=== PATIENT | male | born 1940 | race Caucasian/White ===

== ENCOUNTER → 2017-11-18 14:16 | Outpatient (CLI) | payer MEDICARE, OTHER, SELFPAY ==
--- NOTE | 2017-11-18 14:47 | XR_ITS ---
XR foot wt bearing RT 3V, XR foot wt bearing LT 3V Ordering Physician: Ibeth Mitchell DPM Patient Age: 76 years: Male HISTORY: ITS.REASON: hammertoes foot pain with weightbearing TECHNIQUE: Right foot 3 view weightbearing Left foot 3 view weightbearing COMPARISON : ========= RIGHT FOOT 3 VIEW weightbearing FLEXION deformity/hammertoe deformity at. Toes-most evident second through fifth toe. There are some early degenerative changes at the first MTP joint most evident at its lateral aspect, with some associated minimal subchondral cystic changes about the joint. Question some scant degenerative changes at the first and second tarsometatarsal joints. Extensor ossicle medial navicular os navicularis noted. Bones well mineralized. generous plantar calcaneal spur measuring over 10 mm length. IMPRESSION 1. Flexion, hammertoe deformity at toes 2 through 5 2. Minor arthritic at first MTP joint; and & possibly at first and second tarsal-metatarsal joint LEFT FOOT 3 VIEW weightbearing Perhaps scant early degenerative changes at at first MTP.. Unimpressive Only questionable scant early arthritic changes first and second tarsometatarsal joints.. Moderate plantar calcaneal spur measuring up to 8 mm osseous structures intact Less pronounced flexion, hammertoe deformity at the left toes, 2 through 5. Most evident flexion at second toe perhaps scant hallux valgus developing at distal phalanx great toe IMPRESSION: 1. Flexion, hammertoe deformity at toes less pronounced on the left than right. & Most evident second toe 2. Only question early arthritic changes at first TP joint and first tarsometatarsal region
== END ==
PROVIDERS: PCP Internal Medicine Adolescent Medicine; Visit Provider Podiatrist
DX: M20.40 Other hammer toe(s) (acquired), unspecified foot (principal)
CPT/HCPCS: 73630

== ENCOUNTER → 2018-03-22 07:49 | Outpatient (CLI) | payer MEDICARE, OTHER, SELFPAY ==
[2018-03-22 08:09] LABS: Basophils % 0.8 % (0.1-2.0); Eosinophils # 0.3 K/mm3 (0.0-0.4); Eosinophils % 4.5 % (0.1-12.0); Hemoglobin 14.4 g/dL (14.1-18.0); Lymphocytes # 1.7 K/mm3 (0.7-4.5); Lymphocytes % 31.5 % (10-50); Mean Corpuscular HGB Conc 33.4 g/dL (31.8-35.4); Mean Corpuscular Hemoglobin 30.6 pg (27.0-31.2); Mean Corpuscular Volume 91.7 fl (80-94); Mean Platelet Volume 8.1 fl (7.4-10.4); Monocytes # 0.3 K/mm3 (0.1-1.0); Monocytes % 5.7 % (1.7-9.3); Neutrophils # 3.2 K/mm3 (1.8-7.8); Neutrophils % 57.6 % (37.0-80.0); Platelet Count 195 K/mm3 (142-424); Red Blood Count 4.69 M/mm3 (4.60-6.20); Red Cell Distribution Width 12.9 % (11.5-17.5); White Blood Count 5.6 K/mm3 (4.8-10.8)
[2018-03-22 08:56] LABS: Anion Gap 12.6 mEq/L (5-15); Blood Urea Nitrogen 24 mg/dL (7-18); Calcium 8.9 mg/dL (8.5-10.1); Carbon Dioxide 31 mmol/L (21.0-32.0); Chloride 101 mmol/L (98-107); Creatinine,Serum 1.25 mg/dL (0.70-1.30); Estimated Glomerular Filt Rate 56 ml/min (>60); GFR (African American) 68 ML/MIN (>60); Glucose 127 mg/dL (74-106); Potassium 4.6 mmoL/L (3.5-5.1); Sodium 140 mmol/L (136-145)
== END ==
PROVIDERS: Visit Provider Otolaryngology
DX: Z01.818 Encounter for other preprocedural examination (principal); L98.9 Disorder of the skin and subcutaneous tissue, unspecified
CPT/HCPCS: 36415; 80048; 85025; 93005

== ENCOUNTER → 2018-09-17 11:07 | Outpatient (CLI) | payer MEDICARE, BC, SELFPAY ==
[2018-09-17 11:48] LABS: Basophils % 0.8 % (0.1-2.0); Eosinophils # 0.2 K/mm3 (0.0-0.4); Eosinophils % 3.1 % (0.1-12.0); Hematocrit 42.7 % (42.0-52.0); Hemoglobin 14.9 g/dL (14.1-18.0); Lymphocytes # 1.5 K/mm3 (0.7-4.5); Lymphocytes % 28.2 % (10-50); Mean Corpuscular HGB Conc 34.9 g/dL (31.8-35.4); Mean Corpuscular Hemoglobin 30.9 pg (27.0-31.2); Mean Corpuscular Volume 88.4 fl (80-94); Mean Platelet Volume 7.9 fl (7.4-10.4); Monocytes # 0.4 K/mm3 (0.1-1.0); Monocytes % 6.6 % (1.7-9.3); Neutrophils # 3.2 K/mm3 (1.8-7.8); Neutrophils % 61.3 % (37.0-80.0); Platelet Count 172 K/mm3 (142-424); Red Blood Count 4.84 M/mm3 (4.60-6.20); Red Cell Distribution Width 12.9 % (11.5-17.5); White Blood Count 5.3 K/mm3 (4.8-10.8)
[2018-09-17 12:32] LABS: Anion Gap 12.5 mEq/L (5-15); Blood Urea Nitrogen 20 mg/dL (7-18); Calcium 9.2 mg/dL (8.5-10.1); Carbon Dioxide 31 mmol/L (21.0-32.0); Chloride 103 mmol/L (98-107); Creatinine,Serum 1.22 mg/dL (0.70-1.30); Estimated Glomerular Filt Rate 58 ml/min (>60); GFR (African American) 70 ML/MIN (>60); Glucose 82 mg/dL (74-106); Potassium 4.5 mmoL/L (3.5-5.1); Sodium 142 mmol/L (136-145)
== END ==
PROVIDERS: Visit Provider Otolaryngology
DX: Z01.818 Encounter for other preprocedural examination (principal); L98.9 Disorder of the skin and subcutaneous tissue, unspecified
CPT/HCPCS: 36415; 80048; 85025; 93005

== ENCOUNTER → 2018-10-21 13:19 | Outpatient (CLI) | payer MEDICARE, BC, SELFPAY ==
[2018-10-21 15:07] LABS: Alanine Aminotransferase 35 U/L (12-78); Albumin Level 3.9 gm/dL (3.4-5.0); Albumin/Globulin Ratio 1.4 (1.1-1.8); Alkaline Phosphatase 80 U/L (46-116); Aspartate Amino Transferase 21 U/L (15-37); Bilirubin,Total 1.1 mg/dL (0.2-1.0); Blood Urea Nitrogen 29 mg/dL (7-18); Carbon Dioxide 29 mmol/L (21.0-32.0); Chloride 103 mmol/L (98-107); Creatinine,Serum 1.43 mg/dL (0.70-1.30); Estimated Glomerular Filt Rate 48 ml/min (>60); GFR (African American) 58 ML/MIN (>60); Globulin 2.8 gm/dl (1.3-3.2); Glucose 108 mg/dL (74-106); Sodium 142 mmol/L (136-145); Total Protein,Serum 6.7 gm/dL (6.4-8.2)
== END ==
PROVIDERS: Visit Provider Otolaryngology
DX: Z01.818 Encounter for other preprocedural examination (principal); J34.1 Cyst and mucocele of nose and nasal sinus
CPT/HCPCS: 36415; 80053; 93005

== ENCOUNTER → 2019-01-18 13:59 | Outpatient (CLI) | payer MEDICARE, BC, SELFPAY ==
--- NOTE | 2019-01-18 14:20 | ECG_ITS ---
APPROVED REPORT Exam: Resting ECG HR:51 bpm ECG Measurements Heart Rate 51 AXES CA 150 P 75 QRSd 80 QRS -4 QT 438 T 63 QTc 403 <Conclusion> Sinus bradycardia Otherwise normal ECG Electronically signed by : Elie Jackson, 01/21/2019 09:47:34
[2019-01-18 14:29] LABS: Basophils % 0.8 % (0.1-2.0); Eosinophils # 0.2 K/mm3 (0.0-0.4); Eosinophils % 4.3 % (0.1-12.0); Hematocrit 41.1 % (42.0-52.0); Hemoglobin 13.6 g/dL (14.1-18.0); Lymphocytes # 1.8 K/mm3 (0.7-4.5); Lymphocytes % 32.2 % (10-50); Mean Corpuscular Hemoglobin 31.2 pg (27.0-31.2); Mean Corpuscular Volume 94.5 fl (80-94); Mean Platelet Volume 9.1 fl (7.4-10.4); Monocytes # 0.2 K/mm3 (0.1-1.0); Monocytes % 4.3 % (1.7-9.3); Neutrophils # 3.2 K/mm3 (1.8-7.8); Neutrophils % 58.4 % (37.0-80.0); Platelet Count 185 K/mm3 (142-424); Red Blood Count 4.34 M/mm3 (4.60-6.20); Red Cell Distribution Width 12.9 % (11.5-17.5); White Blood Count 5.5 K/mm3 (4.8-10.8)
[2019-01-18 15:09] LABS: Blood Urea Nitrogen 29 mg/dL (7-18); Calcium 8.9 mg/dL (8.5-10.1); Carbon Dioxide 30 mmol/L (21.0-32.0); Creatinine,Serum 1.43 mg/dL (0.70-1.30); Estimated Glomerular Filt Rate 48 ml/min (>60); GFR (African American) 58 ML/MIN (>60); Glucose 146 mg/dL (74-106); Potassium 4.2 mmoL/L (3.5-5.1); Sodium 141 mmol/L (136-145)
[2019-01-18 15:19] LABS: Anion Gap 12.2 mEq/L (5-15); Chloride 103 mmol/L (98-107)
== END ==
PROVIDERS: PCP Internal Medicine Adolescent Medicine; Visit Provider Otolaryngology
DX: Z01.818 Encounter for other preprocedural examination (principal); J34.89 Other specified disorders of nose and nasal sinuses
CPT/HCPCS: 36415; 80048; 85025; 93005

== ENCOUNTER → 2019-04-13 14:02 | Outpatient (POV) | payer MEDICARE, BC, SELFPAY | DX: Z00.00 Encounter for general adult medical examination without abnormal findings (principal) ==

== ENCOUNTER → 2019-05-27 14:59 | Outpatient (CLI) | payer MEDICARE, BC, SELFPAY ==
[2019-05-27 19:36] LABS: Anion Gap 14.5 mEq/L (5-15); Blood Urea Nitrogen 33 mg/dL (7-18); Calcium 8.6 mg/dL (8.5-10.1); Carbon Dioxide 29 mmol/L (21.0-32.0); Chloride 104 mmol/L (98-107); Creatinine,Serum 1.49 mg/dL (0.70-1.30); Estimated Glomerular Filt Rate 46 ml/min (>60); GFR (African American) 55 ML/MIN (>60); Glucose 149 mg/dL (74-106); Potassium 4.5 mmoL/L (3.5-5.1); Sodium 143 mmol/L (136-145)
== END ==
PROVIDERS: Visit Provider Internal Medicine Adolescent Medicine
DX: I10 Essential (primary) hypertension (principal)
CPT/HCPCS: 36415; 80048

== ENCOUNTER → 2019-06-01 12:52 | Outpatient (POV) | payer MEDICARE, BC, SELFPAY | DX: Z00.00 Encounter for general adult medical examination without abnormal findings (principal) ==

== ENCOUNTER → 2019-06-08 14:04 | Outpatient (POV) | payer MEDICARE, BC, SELFPAY | PROVIDERS: PCP Internal Medicine Adolescent Medicine | DX: Z00.00 Encounter for general adult medical examination without abnormal findings (principal) ==

== ENCOUNTER → 2019-07-20 14:00 | Outpatient (POV) | payer MEDICARE, BC, SELFPAY | PROVIDERS: PCP Internal Medicine Adolescent Medicine | DX: Z00.00 Encounter for general adult medical examination without abnormal findings (principal) ==

== ENCOUNTER → 2019-08-03 14:24 | Outpatient (POV) | payer MEDICARE, BC, SELFPAY | PROVIDERS: PCP Internal Medicine Adolescent Medicine | DX: Z00.00 Encounter for general adult medical examination without abnormal findings (principal) ==

== ENCOUNTER 2019-11-29 20:18 | Emergency (ER) | payer MEDICARE, BC, SELFPAY ==
[2019-11-29 21:05] VITALS: BMI 31.5
[2019-11-29 21:14] VITALS: BP 126/83; PULSE 60; RESP 16; TEMP 36.7; O2SAT 95; BMI 31.5
--- NOTE | 2019-11-29 21:16 | HMH.EDUTC ---
[facility] [place] Disposition Clinical Impression: Fatigue Qualifiers: Fatigue type: unspecified Qualified Code(s): R53.83 - Other fatigue Disposition: Home, Self-Care Condition on Discharge: Good Instructions: DI for Fatigue Additional Instructions: Follow up with Dr Jackson re: lab results. Begin using Cpap again. Referrals: Elie Jackson MD [Primary Care Provider] - Time of Disposition: 21:22 Medical Decision Making - Alvin Inquiry Pt receiving controlled substance: No Vital Signs: 11/29/19 21:14 Temperature 98.0 F Temperature Source Oral Pulse Rate [Right Brachial] 60 Respiratory Rate 16 Blood Pressure [Right Arm] 126/83 Blood Pressure Mean [Right Arm] 97 Blood Pressure Source [Right Arm] Automatic Cuff Blood Pressure Position [Right Arm] Sitting 02 Sat by Pulse Oximetry 95 Oxygen Delivery Method Room Air Orders (Tests/Meds): ORDERS Category Date Time Status CMP [Comprehensive Metabolic Panel] Stat Lab 11/29/19 21:10 Ordered Complete Blood Count Auto Diff Stat Lab 11/29/19 21:10 Ordered Lipid Panel Stat Lab 11/29/19 21:10 Ordered Thyroid Stimulating Hormone Stat Lab 11/29/19 21:10 Ordered [facility] [place] HPI - General Stated complaint: Weakness, to be checked out Time Seen by Provider: 11/29/19 21:17 - History of Present Illness Provider Complaint: Patient complains of fatigue. States that he has been tired for several days. He states that when he sits down, he just feels like he could fall right asleep. He does have a history of JOAQUINA and has a Cpap machine, but hasn't been using it because he recently moved. Hasn't used it for about two weeks. Can't recall when he saw his PCP for a check up last. Did have some preop labs and an EKG not too long ago for an eye surgery. He has not been exposed to anyone who is sick. He denies headache, ear pain, sore throat, cough, shortness of air, nausea, vomiting or diarrhea. He has not noticed melena. He is not dizzy. He denies depression, but states that he has been a little jittery today. Mostly he states that he is just tired. Onset (ago): day(s) (3) Relieving factors: none Exacerbating factors: none Associated symptoms: denies other symptoms Treatments prior to arrival: none - Related Data Home Medications Medication Instructions Recorded Confirmed atorvastatin 40 mg tablet 40 mg PO DAILY 30 Days tab 11/09/17 05/23/19 diazepam 10 mg tablet 10 mg PO DAILY 30 Days tab 11/09/17 05/23/19 diclofenac sodium 75 mg 75 mg PO DAILY 30 Days #30 11/09/17 05/23/19 tablet,delayed release diltiazem HCl 120 mg 120 mg PO DAILY 30 Days #30 11/09/17 05/23/19 capsule,extended release 24 hr, controlled furosemide 20 mg tablet 20 mg PO DAILY 30 Days tab 11/09/17 05/23/19 lisinopril 20 mg tablet 20 mg PO DAILY 30 Days tab 11/09/17 05/23/19 pantoprazole 40 mg tablet,delayed 40 mg PO DAILY 30 Days #30 11/09/17 05/23/19 release tamsulosin 0.4 mg capsule 0.4 mg PO DAILY 30 Days #30 11/09/17 05/23/19 Allergies Allergy/AdvReac Type Severity Reaction Status Date / Time tetracycline Allergy Unknown SWELLING/BL Verified 05/23/19 13:44 [facility] History - Hepatitis A Screen Attestation statement:: This patient has been screened for Hepatitis A risk factors. I have reviewed the patient's past medical history: Yes Medical History: Reports:: Anxiety, Gastroesophageal Reflux Disease(GERD), Hyperlipidemia, Hypertension Denies:: Cancer, Diabetes Mellitus Type 1, Diabetes Mellitus Type 2, Internal Pacemaker, MRSA, Seizures Other Medical History: Reports: Arthritis, Other. Denies: Blood Transfusion Reaction Laterality Cases: Left: Arthroscopy Shoulder, Right: Total Hip Replacement, Bilateral: Arthroscopy Knee Other Surgeries: Yes: Cholecystectomy, Colonoscopy. No: Pacemaker Amputation: No Fractures: No - Social History Smoking Status: Never smoker #Yrs smoked (if former smoker): 45 Alcohol Intake: never Alcohol Intake Frequency:: other Subs
[2019-11-29 21:25] VITALS: BP 126/83; PULSE 60; RESP 16; TEMP 36.7; O2SAT 95
[2019-11-29 21:27] LABS: Basophils % 0.7 % (0.1-2.0); Eosinophils # 0.2 K/mm3 (0.0-0.4); Eosinophils % 4.3 % (0.1-12.0); Hematocrit 41.9 % (42.0-52.0); Hemoglobin 14.5 g/dL (14.1-18.0); Lymphocytes # 1.7 K/mm3 (0.7-4.5); Lymphocytes % 33.8 % (10-50); Mean Corpuscular HGB Conc 34.7 g/dL (31.8-35.4); Mean Corpuscular Hemoglobin 31.5 pg (27.0-31.2); Mean Platelet Volume 8.6 fl (7.4-10.4); Monocytes # 0.3 K/mm3 (0.1-1.0); Monocytes % 5.5 % (1.7-9.3); Neutrophils # 2.9 K/mm3 (1.8-7.8); Neutrophils % 55.7 % (37.0-80.0); Platelet Count 165 K/mm3 (142-424); Red Cell Distribution Width 12.9 % (11.5-17.5); White Blood Count 5.1 K/mm3 (4.8-10.8)
[2019-11-29 21:33] LABS: Chloride 101 mmol/L (98-107); Potassium 4.7 mmoL/L (3.5-5.1); Sodium 140 mmol/L (136-145)
[2019-11-29 21:36] LABS: Alanine Aminotransferase 33 U/L (12-78); Albumin Level 4.1 g/dl (3.5-5.0); Albumin/Globulin Ratio 1.5 (1.1-1.8); Alkaline Phosphatase 60 U/L (38-126); Anion Gap 11.7 mEq/L (5-15); Aspartate Amino Transferase 28 U/L (17-59); Blood Urea Nitrogen 26 mg/dl (9-20); Calcium 9.3 mg/dl (8.4-10.2); Carbon Dioxide 32 mmol/L (22.0-30.0); Cholesterol 134 mg/dl (140-200); Creatinine Clearance Estimated 67 mL/min (50-200); Estimated Glomerular Filt Rate 54 ml/min (>60); GFR (African American) 65 ML/MIN (>60); Globulin 2.7 g/dL (1.3-3.2); Glucose 127 mg/dl (74-100); Total Protein,Serum 6.8 g/dl (6.3-8.2); Triglycerides 154 mg/dl (30-150); VLDL Cholesterol 31 mg/dL (0-40)
[2019-11-29 21:37] LABS: Chol/HDL Ratio 3.7 (1-3.5); HDL Cholesterol 36 mg/dl (40-60)
[2019-11-29 21:48] LABS: Direct LDL Cholesterol 63.66 mg/dL (100-129)
[2019-11-29 22:10] LABS: Thyroid Stimulating Hormone 1.55 uIU/mL (0.465-4.68)
== END 2019-11-29 21:28 | disposition home or self-care (01) ==
PROVIDERS: Emergency Provider Physician Assistant; PCP Internal Medicine Adolescent Medicine
DX: R53.83 Other fatigue (principal); G47.33 Obstructive sleep apnea (adult) (pediatric); I10 Essential (primary) hypertension; F41.9 Anxiety disorder, unspecified; K21.9 Gastro-esophageal reflux disease without esophagitis; E78.5 Hyperlipidemia, unspecified; Z90.49 Acquired absence of other specified parts of digestive tract; Z79.899 Other long term (current) drug therapy
CPT/HCPCS: G0463; 36415; 80053; 80061; 84443; 85025; 99201

== ENCOUNTER → 2020-04-04 14:38 | Outpatient (POV) | payer MEDICARE, BC, SELFPAY | DX: Z00.00 Encounter for general adult medical examination without abnormal findings (principal) ==

== ENCOUNTER → 2020-05-09 09:47 | Outpatient (CLI) | payer MEDICARE, BC, SELFPAY ==
[2020-05-09 10:14] LABS: Basophils % 0.8 % (0.1-2.0); Eosinophils # 0.2 K/mm3 (0.0-0.4); Eosinophils % 3.5 % (0.1-12.0); Hematocrit 44.9 % (42.0-52.0); Hemoglobin 14.6 g/dL (14.1-18.0); Lymphocytes # 1.8 K/mm3 (0.7-4.5); Lymphocytes % 31.7 % (10-50); Mean Corpuscular HGB Conc 32.6 g/dL (31.8-35.4); Mean Corpuscular Hemoglobin 30.4 pg (27.0-31.2); Mean Corpuscular Volume 93.2 fl (80-94); Mean Platelet Volume 8.2 fl (7.4-10.4); Monocytes # 0.4 K/mm3 (0.1-1.0); Monocytes % 6.2 % (1.7-9.3); Neutrophils # 3.3 K/mm3 (1.8-7.8); Neutrophils % 57.9 % (37.0-80.0); Platelet Count 173 K/mm3 (142-424); Red Blood Count 4.82 M/mm3 (4.60-6.20); Red Cell Distribution Width 13.4 % (11.5-17.5); White Blood Count 5.7 K/mm3 (4.8-10.8)
--- NOTE | 2020-05-09 10:50 | ECG_ITS ---
APPROVED REPORT Exam: Resting ECG HR:46 bpm ECG Measurements Heart Rate 46 AXES MA 158 P 59 QRSd 86 QRS -12 QT 448 T 56 QTc 392 Conclusion Marked sinus bradycardia Low voltage QRS Abnormal ECG Electronically signed by : Elie Jackson, 05/10/2020 19:28:51
[2020-05-09 11:54] LABS: Coronavirus 19 IgG Antibody Negative (Negative); Coronavirus 19 IgM Antibody Negative (Negative)
== END ==
PROVIDERS: Visit Provider Otolaryngology
DX: Z01.812 Encounter for preprocedural laboratory examination (principal); Z11.52 Encounter for screening for COVID-19; L98.9 Disorder of the skin and subcutaneous tissue, unspecified
CPT/HCPCS: 36415; 85025; 86328; 93005

== ENCOUNTER 2020-05-10 08:40 | Day surgery (SDC) | payer MEDICARE, BC, SELFPAY ==
[2020-05-08 13:55] VITALS: BMI 33.7
[2020-05-10 09:03] VITALS: BP 162/82; PULSE 60; RESP 18; TEMP 36.1; O2SAT 94
--- NOTE | 2020-05-10 09:36 | P.PN_ITS ---
[facility] Anesthesia Checklist - Patient Identification Patient Identification: Arm Band - Structural Data Admitted From: Home Planned Operative Procedure/s: excision of scalp lesion x3 Consent for Planned Operative Procedure(s) Verified: Yes Verified Documents: Surgical Consent, History and Physical - NPO Status Verified Time NPO: 00:00 - Additional verifications Anesthesia Reactions: No Hx Blood Transfusions: No Blood Transfusion Reaction: No - Airway Assessment C-Spine Mobility Assessed: Yes (mp1) TMJ Mobility Assessed: Yes Dentition: Edentulous - Neurological Assessment Level of Consciousness: Awake, Alert - Anesthesia Plan Anesthesia Risk discussed: Yes Anesthesia Plan: Verified ASA Class: II Anesthesia Type: MAC [facility] History I have reviewed the patient's past medical history: Yes Medical History: Reports:: Anxiety, Gastroesophageal Reflux Disease(GERD), Hyperlipidemia, Hypertension Denies:: Cancer, Diabetes Mellitus Type 1, Diabetes Mellitus Type 2, Internal Pacemaker, MRSA, Seizures *Have you ever received a pneumonia vaccine?: Yes *Have you received a flu vaccine this season?: Yes Other Medical History: Reports: Arthritis, Other. Denies: Blood Transfusion Reaction Anesthesia experience/problems:: nac Laterality Cases: Left: Arthroscopy Shoulder, Right: Total Hip Replacement, Bilateral: Arthroscopy Knee Other Surgeries: Yes: Cholecystectomy, Colonoscopy. No: Pacemaker Amputation: No Fractures: No - *Social History Last grade of school completed: 9th or 10th Smoking Status: Never smoker #Yrs smoked (if former smoker): 45 Alcohol Intake: never Alcohol Intake Frequency:: other Substance Use Type: denies use *Occupational Status:: retired Housing: apartment Household Members: spouse *Travel in the last 8 weeks: None - Psychiatric History Pschychiatric History:: Reports:: Anxiety Family Hx:: Diabetes, Cancer
[2020-05-10 11:05] VITALS: BP 147/86; PULSE 53; RESP 16; TEMP 36.1; O2SAT 95
[2020-05-10 11:20] VITALS: BP 144/81; PULSE 52; RESP 16; TEMP 36.1; O2SAT 96
--- NOTE | 2020-05-10 11:34 | P.OP_ITS ---
Date of procedure: 05/10/20 Pre-op Diagnosis:: 1. 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 Neoplasm posterior forehead 1.8 cm Post-op Diagnosis:: Same Procedure performed:: 1. Excision of neoplasm left orthodox 4.6 cm with tissue rearrangement geometric plastic repair. 2. Excision of neoplasm anterior forehead 1.6 cm with tissue rearrangement geometric plastic repair. 3. Excision of neoplasm posterior forehead 1.8 cm with Z-plasty tissue rearrang ement repair Surgeon:: Gray Burgos MD PROGRAM DIRECTOR/AIR PERSONALITY:: Other Anesthesia: GETA, MAC Estimated blood loss (mL): 10 Operative findings:: 1. 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 Neoplasm posterior forehead 1.8 cm Operative note:: With the patient under a MAC anesthetic the scalp was prepped and draped the eyes were protected with Steri-Strips the perilesional areas were infiltrated with a total of 6 cc of 2% lidocaine containing epinephrine. The lesion on the left orthodox was marked out it measured 4.6 cm the young out was incised and the lesion was excised. Bleeding was stopped with bipolar cautery. Anterior and p osterior incisions were made and a tissue rearrangement geometric plastic repair was done with interrupted 4-0 nylon sutures Surgicel snow was placed in the defect and then the defect was repaired and a dressing was applied. The lesion on the anterior forehead measured 1.6 cm the lesion was excised and the bleeding was stopped with bipolar cautery. Superior and inferior incisions were made and a geometric plastic repair was done with interrupted 4-0 nylon sutures a dressing was applied. The lesion on the posterior forehead measured 1.8 cm the marked was incised and the lesion was excised. Medial and lateral incisions were made and a tissue rearrangement geometric plastic repair was done with interrupted 4-0 nylon sutures a dressing was applied. The patient tolerated the procedure well and was sent to recovery in good general condition. Condition: stable Disposition: PACU Complications:: None
[2020-05-10 11:37] VITALS: BP 132/87; PULSE 50; RESP 18; TEMP 36.1; O2SAT 97
== END 2020-05-10 11:37 | disposition home or self-care (01) ==
LOC: OR 08:42
PROVIDERS: PCP Internal Medicine Adolescent Medicine; Visit Provider Otolaryngology
PROC: (CPT 14040; principal; 2020-05-10 10:30)
DX: I10 Essential (primary) hypertension (principal); L82.0 Inflamed seborrheic keratosis; L82.1 Other seborrheic keratosis; E78.5 Hyperlipidemia, unspecified; K21.9 Gastro-esophageal reflux disease without esophagitis; F41.9 Anxiety disorder, unspecified; M19.90 Unspecified osteoarthritis, unspecified site; Z87.39 Personal history of other diseases of the musculoskeletal system and connective tissue; Z88.1 Allergy status to other antibiotic agents; Z79.899 Other long term (current) drug therapy
CPT/HCPCS: 14040 ×3; 88305; 96374; 96375

== ENCOUNTER → 2020-06-21 15:07 | Outpatient (CLI) | payer MEDICARE, BC, SELFPAY | PROVIDERS: PCP Internal Medicine Adolescent Medicine; Visit Provider Ophthalmology | DX: Z01.818 Encounter for other preprocedural examination (principal); Z20.822 Contact with and (suspected) exposure to COVID-19 | CPT/HCPCS: U0003 ==

== ENCOUNTER → 2020-08-22 08:01 | Outpatient (CLI) | payer MEDICARE, BC, SELFPAY ==
[2020-08-22 08:37] LABS: Basophils % 0.6 % (0.1-2.0); Eosinophils # 0.2 K/mm3 (0.0-0.4); Eosinophils % 4.2 % (0.1-12.0); Hematocrit 43.3 % (42.0-52.0); Lymphocytes # 1.9 K/mm3 (0.7-4.5); Lymphocytes % 33.3 % (10-50); Mean Corpuscular HGB Conc 32.4 g/dL (31.8-35.4); Mean Corpuscular Hemoglobin 29.8 pg (27.0-31.2); Mean Platelet Volume 8.3 fl (7.4-10.4); Monocytes # 0.4 K/mm3 (0.1-1.0); Monocytes % 6.1 % (1.7-9.3); Neutrophils # 3.2 K/mm3 (1.8-7.8); Neutrophils % 55.7 % (37.0-80.0); Platelet Count 162 K/mm3 (142-424); Red Blood Count 4.71 M/mm3 (4.60-6.20); Red Cell Distribution Width 13.4 % (11.5-17.5); White Blood Count 5.7 K/mm3 (4.8-10.8)
[2020-08-22 08:55] LABS: Hemoglobin A1C 6.9 % (4.0-6.0)
[2020-08-22 09:49] LABS: Alanine Aminotransferase 31 U/L (12-78); Albumin Level 4.3 g/dl (3.5-5.0); Albumin/Globulin Ratio 1.8 (1.1-1.8); Alkaline Phosphatase 72 U/L (38-126); Anion Gap 11.7 mEq/L (5-15); Aspartate Amino Transferase 28 U/L (17-59); Bilirubin,Total 0.9 mg/dl (0.2-1.3); Blood Urea Nitrogen 26 mg/dl (9-20); Calcium 9.3 mg/dl (8.4-10.2); Carbon Dioxide 30 mmol/L (22.0-30.0); Chloride 103 mmol/L (98-107); Chol/HDL Ratio 4.1 (1-3.5); Cholesterol 124 mg/dl (140-200); Estimated Glomerular Filt Rate 59 ml/min (>60); GFR (African American) 71 ML/MIN (>60); Globulin 2.4 g/dL (1.3-3.2); Glucose 130 mg/dl (74-100); HDL Cholesterol 30 mg/dl (40-60); Potassium 4.7 mmoL/L (3.5-5.1); Sodium 140 mmol/L (136-145); Total Protein,Serum 6.7 g/dl (6.3-8.2); Triglycerides 113 mg/dl (30-150); VLDL Cholesterol 23 mg/dL (0-40)
[2020-08-22 10:01] LABS: Direct LDL Cholesterol 61.19 mg/dL (100-129)
[2020-08-22 10:21] LABS: Prostate Specific Ag Screen 2.6 ng/ml (0.0-4.0)
== END ==
PROVIDERS: Visit Provider Nurse Practitioner Family
DX: I10 Essential (primary) hypertension (principal); R73.03 Prediabetes; R79.89 Other specified abnormal findings of blood chemistry; N40.1 Benign prostatic hyperplasia with lower urinary tract symptoms; Z12.5 Encounter for screening for malignant neoplasm of prostate
CPT/HCPCS: 36415; 80053; 80061; 83036; 85025; G0103

== ENCOUNTER → 2020-10-08 15:39 | Outpatient (CLI) | payer MEDICARE, BC, SELFPAY ==
--- NOTE | 2020-10-08 15:48 | XR_ITS ---
PROCEDURE: XR ELBOW RT MIN 3V CLINICAL INDICATION: RT ELBOW PAIN COMPARISON: No exams were available for comparison FINDINGS: There are some diffuse degenerative changes of the elbow joint. No acute fracture or dislocation. No joint effusion. Some soft tissue swelling is present. 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 No acute fracture or dislocation. Dictated by: Naga Eastman 10/09/2020 10:34 Naga Eastman in [place] 10/09/2020 10:34
== END ==
PROVIDERS: PCP Internal Medicine Adolescent Medicine; Visit Provider Internal Medicine Adolescent Medicine
DX: M25.521 Pain in right elbow (principal)
CPT/HCPCS: 73080

== ENCOUNTER → 2020-11-27 16:07 | Outpatient (CLI) | payer MEDICARE, BC, SELFPAY ==
--- NOTE | 2020-11-27 16:30 | ECG_ITS ---
APPROVED REPORT Exam: Resting ECG HR:47 bpm ECG Measurements Heart Rate 47 AXES LA 160 P 82 QRSd 84 QRS -22 QT 444 T 58 QTc 392 Conclusion Marked sinus bradycardia Late R wave progression, unchanged from prior Abnormal ECG Electronically signed by : Elie Jackson MD 11/30/2020 11:41:05
[2020-11-27 17:14] LABS: Basophils # 0.1 K/mm3 (0-0.2); Eosinophils # 0.2 K/mm3 (0.0-0.4); Eosinophils % 3.6 % (0.1-12.0); Hematocrit 43.1 % (42.0-52.0); Hemoglobin 14.5 g/dL (14.1-18.0); Lymphocytes # 1.5 K/mm3 (0.7-4.5); Lymphocytes % 28.9 % (10-50); Mean Corpuscular HGB Conc 33.7 g/dL (31.8-35.4); Mean Corpuscular Hemoglobin 30.2 pg (27.0-31.2); Mean Corpuscular Volume 89.7 fl (80-94); Mean Platelet Volume 7.8 fl (7.4-10.4); Monocytes # 0.3 K/mm3 (0.1-1.0); Monocytes % 6.5 % (1.7-9.3); Neutrophils # 3.1 K/mm3 (1.8-7.8); Platelet Count 177 K/mm3 (142-424); Red Blood Count 4.81 M/mm3 (4.60-6.20); Red Cell Distribution Width 13.4 % (11.5-17.5); White Blood Count 5.2 K/mm3 (4.8-10.8)
== END ==
PROVIDERS: Visit Provider Otolaryngology
DX: Z20.822 Contact with and (suspected) exposure to COVID-19; L98.9 Disorder of the skin and subcutaneous tissue, unspecified; Z01.818 Encounter for other preprocedural examination
CPT/HCPCS: 36415; 85025; 93005; U0003

== ENCOUNTER 2020-11-29 06:42 | Day surgery (SDC) | payer MEDICARE, BC, SELFPAY ==
[2020-11-27 08:29] VITALS: BMI 34.2
[2020-11-29 07:15] VITALS: BP 132/71; PULSE 53; RESP 18; TEMP 36.4; O2SAT 94
--- NOTE | 2020-11-29 07:31 | P.PN_ITS ---
[facility] Anesthesia Checklist - Patient Identification Patient Identification: Arm Band - Structural Data Admitted From: Home Planned Operative Procedure/s: Excision lesion Consent for Planned Operative Procedure(s) Verified: Yes - NPO Status Verified Time NPO: 00:00 - Additional verifications Anesthesia Reactions: No Hx Blood Transfusions: No Blood Transfusion Reaction: No - Airway Assessment C-Spine Mobility Assessed: Yes TMJ Mobility Assessed: Yes Dentition: Edentulous - Neurological Assessment Level of Consciousness: Awake Hx Seizures: Yes Numbness or tingling in extremities: No - Anesthesia Plan Anesthesia Risk discussed: Yes Anesthesia Plan: Verified ASA Class: III Anesthesia Type: Local & MAC [facility] History I have reviewed the patient's past medical history: Yes Medical History: Reports:: Anxiety, Diabetes Mellitus Type 2, Gastroesophageal Reflux Disease(GERD), Hyperlipidemia, Hypertension, Seizures (1 sz years ago) Denies:: Cancer, Diabetes Mellitus Type 1, Internal Pacemaker, MRSA *Have you ever received a pneumonia vaccine?: Yes *Have you received a flu vaccine this season?: Yes Other Medical History: Reports: Arthritis, Other. Denies: Blood Transfusion Reaction Anesthesia experience/problems:: PONV Laterality Cases: Left: Arthroscopy Shoulder, Right: Total Hip Replacement, Total Knee Replacement, Bilateral: Arthroscopy Knee Other Surgeries: Yes: Cholecystectomy, Colonoscopy, Skin Cancer Excision, Other. No: Pacemaker Amputation: No Fractures: No - *Social History Last grade of school completed: 9th or 10th Smoking Status: Never smoker #Yrs smoked (if former smoker): 45 Alcohol Intake: never Alcohol Intake Frequency:: other Substance Use Type: denies use *Occupational Status:: retired Housing: house Household Members: spouse *Travel in the last 8 weeks: None - Psychiatric History Pschychiatric History:: Reports:: Anxiety Family Hx:: Diabetes, Cancer
[2020-11-29 07:35] LABS: POC Glucose,Bedside 127 (70-110)
[2020-11-29 09:30] VITALS: BP 145/75; PULSE 52; RESP 18; TEMP 36.6; O2SAT 93
--- NOTE | 2020-11-29 09:37 | HMH.OPNOTE ---
Date of procedure: 11/29/20 Pre-op Diagnosis:: 1. Neoplasm left scalp 3.8 cm 2. 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 Excision of neoplasm left scalp 3.8 cm with tissue rearrangement Z-plasty repair 2. Excision of neoplasm left forehead 2.5 cm with tissue rearrangement Z-plasty repair Surgeon:: Gray Burgos MD ECONOMICS TEACHER:: Connor Keating Anesthesia: MAC Estimated blood loss (mL): 9 Operative findings:: same Operative note:: The face was and scalp were prepped and draped. The lesion on the left scalp was marked out, it measured 3.8 cm the perilesional area was infiltrated with 3 cc of 2% lidocaine containing epinephrine. The lesion was excised and submitted. Anterior and posterior incisions were made and a tissue rearrangement Z-plasty repair was done with interrupted 2-0 nylon sutures, after Surgicel snow was placed in the defect. The lesion on the left forehead was marked out, it measured 2.5 cm, the markup was incised and the lesion was excised and submitted. Bleeding was stopped with bipolar cautery. Superior and inferior incisions were made, Surgicel snow was placed in the defect and a tissue rearrangement Z-plasty repair was done with interrupted 2-0 nylon sutures. A Dermabond dressing was applied and the patient was sent to recovery in good general condition. Condition: stable Disposition: PACU Complications:: none
[2020-11-29 09:40] VITALS: BP 126/73; PULSE 46; RESP 18; O2SAT 97
[2020-11-29 09:50] VITALS: BP 131/88; PULSE 44; RESP 18; O2SAT 94
[2020-11-29 09:56] VITALS: BP 140/81; PULSE 54; RESP 18; O2SAT 95
== END 2020-11-29 10:00 | disposition home or self-care (01) ==
LOC: OR 06:45
PROVIDERS: PCP Internal Medicine Adolescent Medicine; Visit Provider Otolaryngology
DX: L82.0 Inflamed seborrheic keratosis (principal); L82.1 Other seborrheic keratosis; E11.9 Type 2 diabetes mellitus without complications; K21.9 Gastro-esophageal reflux disease without esophagitis; E78.5 Hyperlipidemia, unspecified; I10 Essential (primary) hypertension; F41.9 Anxiety disorder, unspecified; R56.9 Unspecified convulsions; M19.90 Unspecified osteoarthritis, unspecified site; Z85.828 Personal history of other malignant neoplasm of skin; Z80.9 Family history of malignant neoplasm, unspecified; Z83.3 Family history of diabetes mellitus; Z90.49 Acquired absence of other specified parts of digestive tract
CPT/HCPCS: 14020; 14040; 82962; 88305; 96374; 96375

== ENCOUNTER 2020-12-04 08:02 | Emergency (ER) | payer MEDICARE, BC, SELFPAY ==
[2020-12-04 08:03] VITALS: BP 169/90; PULSE 82; RESP 18; TEMP 38.6; O2SAT 98; BMI 33.4
[2020-12-04 08:18] VITALS: BP 137/81; PULSE 64; O2SAT 92
[2020-12-04 08:29] VITALS: BMI 33.4
--- NOTE | 2020-12-04 08:37 | HMH.EDGENADL ---
ED Disposition Clinical Impression: COVID-19 Disposition: Home, Self-Care Condition on Discharge: Good Instructions: DI for Fever (Symptom) -- Child Older Than Three Years Additional Instructions: drink plenty of fluid. take tylenol 500 mg every six hours. Return to ED if new symptoms or worsening of symptoms. Follow up with your PCP. Prescriptions: Albuterol Sulfate [Albuterol Sulfate Hfa] 8.5 gm IH 5XDAY 14 Days #1 hfa.aer.ad Transmission Status: Pending to [facility] Azithromycin [Zithromax 1gm packet] 1 gm PO ONCE #1 packet Transmission Status: Pending to [facility] Referrals: Elie Jackson MD [Primary Care Provider] - - Critical Care Critical Care Time: No Attestation: On 12/04/20, the high probability of a clinically significant, sudden or life threatening deterioration of the following system(s) required my full and direct attention, intervention and personal management. The time I documented below is in addition to time spent performing reported procedures but includes the following listed in this critical care notation. Medical Decision Making - Medical Records MR Comment: patient is covid positive.has normal O2 sat. no nausea or vomiting. no confusion. no SOA. can be treated as an out patient. not an immuno compromised. - Alvin Inquiry Pt receiving controlled substance: No Alvin was queried for this patient: No Vital Signs: 12/04/20 08:03 12/04/20 08:18 12/04/20 09:00 Temperature 101.5 F H Temperature Source Oral Pulse Rate 64 58 L Pulse Rate [Right] 82 Respiratory Rate 18 Blood Pressure 137/81 133/78 Blood Pressure [Right Arm] 169/90 H Blood Pressure Mean [Right Arm] 116 02 Sat by Pulse Oximetry 98 92 L 91 L Oxygen Delivery Method Room Air - Lab Data Lab Results 12/04/20 08:10: WBC 6.0, RBC 4.69, Hgb 14.2, Hct 42.7, MCV 91.0, MCH 30.3, MCHC 33.3, RDW 13.2, Plt Count 160, MPV 8.3, Neut % (Auto) 70.3, Lymph % (Auto) 18.9, Florence % (Auto) 6.8, Eos % (Auto) 3.2, Baso % (Auto) 0.7, Neut # (Auto) 4.2, Lymph # (Auto) 1.1, Florence # (Auto) 0.4, Eos # (Auto) 0.2, Baso # (Auto) 0.0 12/04/20 08:10: Sodium 138, Potassium 4.4, Chloride 103, Carbon Dioxide 27, Anion Gap 12.4, BUN 22 H, Creatinine 1.30 H, Estimated Creat Clear 66, Estimated GFR 53 L, Est GFR ( Amer) 65, Glucose 131 H, Calcium 8.8, Total Bilirubin 1.4 H, AST 28, ALT 31, Alkaline Phosphatase 71, Total Protein 7.1, Albumin 4.3, Globulin 2.8, Albumin/Globulin Ratio 1.5 12/04/20 08:10: Lactate 0.9 12/04/20 08:15: SARS-CoV-2 (PCR) Detected A, Influenza A Untype (PCR) Not detected, Influenza Type B (PCR) Not detected 12/04/20 09:14: Urine Color Yellow, Urine Appearance Clear, Urine pH 6.0, Ur Specific Pep 1.010, Urine Protein Negative, Urine Glucose (UA) Negative, Urine Ketones Negative, Urine Blood Negative, Urine Nitrate Negative, Urine Bilirubin Negative, Urine Urobilinogen 0.2, Ur Leukocyte Esterase Negative Result diagrams: 12/04/20 08:10 12/04/20 08:10 Orders (Tests/Meds): ED MEDICATIONS Discontinued Medications Generic Name Dose Route Start Last Admin Trade Name Freq PRN Reason Stop Dose Admin Acetaminophen 500 mg 12/04/20 08:30 12/04/20 08:40 Acetaminophen 500mg Tab PO 12/04/20 08:31 500 mg ONCE ONE Administration Sodium Chloride 500 ml 12/04/20 08:30 12/04/20 08:40 Sodium Chloride 0.9% 500ml Bag IV 12/04/20 08:31 500 ml ONCE ONE Administration ORDERS Category Date Time Status XR chest portable Stat Exams 12/04/20 08:38 Taken UA [Urinalysis and Microscopic] Stat Lab 12/04/20 09:14 Results Blood Culture Stat Micro 12/04/20 08:46 Received General Adult HPI - General Stated complaint: feverish, achy Time Seen by Provider: 12/04/20 08:37 - History of Present Illness HPI narrative: 79 year old male who lives by himself , complaining of fever that started yesterday with muscle aches. no sore throat.no cough. no SOA. no so
--- NOTE | 2020-12-04 08:38 | XR_ITS ---
PROCEDURE: XR CHEST PORTABLE CLINICAL HISTORY: General mylagia, fever COMPARISON: CR CXR CHEST(2 VIEWS-NOT PORTABLE) from 09/03/2015 FINDINGS: Borderline cardiomegaly without failure. The lungs are clear without infiltrates, suspicious nodules, or pleural effusions. No acute bony abnormalities. IMPRESSION: No acute findings. Dictated by: Eb Boykin MD 12/04/2020 10:19 Eb Boykin MD in [place] 12/04/2020 10:19
[2020-12-04 08:39] LABS: Influenza A, PCR Not Detected (NotDetected); Influenza B, PCR Not Detected (NotDetected)
[2020-12-04 08:40] LABS: Basophils % 0.7 % (0.1-2.0); Eosinophils # 0.2 K/mm3 (0.0-0.4); Eosinophils % 3.2 % (0.1-12.0); Hematocrit 42.7 % (42.0-52.0); Hemoglobin 14.2 g/dL (14.1-18.0); Lymphocytes # 1.1 K/mm3 (0.7-4.5); Lymphocytes % 18.9 % (10-50); Mean Corpuscular HGB Conc 33.3 g/dL (31.8-35.4); Mean Corpuscular Hemoglobin 30.3 pg (27.0-31.2); Mean Platelet Volume 8.3 fl (7.4-10.4); Monocytes # 0.4 K/mm3 (0.1-1.0); Monocytes % 6.8 % (1.7-9.3); Neutrophils # 4.2 K/mm3 (1.8-7.8); Neutrophils % 70.3 % (37.0-80.0); Platelet Count 160 K/mm3 (142-424); Red Blood Count 4.69 M/mm3 (4.60-6.20); Red Cell Distribution Width 13.2 % (11.5-17.5)
[2020-12-04 08:44] LABS: Chloride 103 mmol/L (98-107); Potassium 4.4 mmoL/L (3.5-5.1); Sodium 138 mmol/L (136-145)
[2020-12-04 08:46] LABS: Alanine Aminotransferase 31 U/L (12-78); Blood Urea Nitrogen 22 mg/dl (9-20); Creatinine Clearance Estimated 66 mL/min (50-200); Estimated Glomerular Filt Rate 53 ml/min (>60); GFR (African American) 65 ML/MIN (>60)
[2020-12-04 08:47] LABS: Albumin Level 4.3 g/dl (3.5-5.0); Albumin/Globulin Ratio 1.5 (1.1-1.8); Alkaline Phosphatase 71 U/L (38-126); Anion Gap 12.4 mEq/L (5-15); Aspartate Amino Transferase 28 U/L (17-59); Bilirubin,Total 1.4 mg/dl (0.2-1.3); Calcium 8.8 mg/dl (8.4-10.2); Carbon Dioxide 27 mmol/L (22.0-30.0); Globulin 2.8 g/dL (1.3-3.2); Glucose 131 mg/dl (74-100); Total Protein,Serum 7.1 g/dl (6.3-8.2)
[2020-12-04 08:49] LABS: Lactic Acid 0.9 mmol/L (0.7-2.1)
[2020-12-04 09:00] VITALS: BP 133/78; PULSE 58; O2SAT 91
[2020-12-04 09:08] LABS: Coronavirus 19, PCR Detected (NotDetected)
--- NOTE | 2020-12-04 09:08 | PC.NURSE ---
Positive covid result reported at this time.
[2020-12-04 09:17] LABS: Microscopic, Urine URINE MICROSCOPIC (MICROSCOPIC)
[2020-12-04 09:21] LABS: Appearance,Urine CLEAR (Clear); Bilirubin,Urine Negative (Negative); Blood, Urine Negative (Negative); Color,Urine YELLOW (Yellow); Glucose,Urine (UA) Negative (Negative); Ketones,Urine Negative (Negative); Leukocyte Esterase,Urine Negative (Negative); Nitrate,Urine Negative (Negative); Protein,Urine Negative (Negative); Urobilinogen,Urine 0.2 EU/dl (0.2)
[2020-12-04 09:30] VITALS: BP 119/70; PULSE 63; O2SAT 93
[2020-12-04 09:44] LABS: Squamous Epithelial Cell,Urine Occasional #/hpf (0-5)
[2020-12-04 10:09] VITALS: BP 126/76; PULSE 57; RESP 20; TEMP 37.2; O2SAT 94
== END 2020-12-04 10:10 | disposition home or self-care (01) ==
PROVIDERS: Emergency Provider Internal Medicine; PCP Internal Medicine Adolescent Medicine
DX: U07.1 COVID-19 (principal); E11.9 Type 2 diabetes mellitus without complications; I10 Essential (primary) hypertension; K21.9 Gastro-esophageal reflux disease without esophagitis; E78.5 Hyperlipidemia, unspecified; Z79.899 Other long term (current) drug therapy
CPT/HCPCS: 71045; 80053; 81001; 83605; 85025; 87040; 96365; 99283; U0003

== ENCOUNTER 2020-12-12 10:06 | Emergency (ER) | payer MEDICARE, BC, SELFPAY ==
[2020-12-12 12:52] VITALS: BP 0/0; PULSE 0; RESP 0; TEMP -17.7; TEMP 0
== END 2020-12-12 12:54 | disposition left against medical advice (07) ==
LOC: UTC 10:10
PROVIDERS: Emergency Provider Nurse Practitioner Family; PCP Internal Medicine Adolescent Medicine
DX: Z53.21 Procedure and treatment not carried out due to patient leaving prior to being seen by health care provider (principal)

== ENCOUNTER → 2021-03-08 07:01 | Outpatient (CLI) | payer MEDICARE, BC, SELFPAY ==
[2021-03-08 07:43] LABS: Basophils % 0.9 % (0.1-2.0); Eosinophils # 0.2 K/mm3 (0.0-0.4); Eosinophils % 4.1 % (0.1-12.0); Hematocrit 42.5 % (42.0-52.0); Hemoglobin 14.3 g/dL (14.1-18.0); Lymphocytes # 1.1 K/mm3 (0.7-4.5); Lymphocytes % 23.7 % (10-50); Mean Corpuscular HGB Conc 33.6 g/dL (31.8-35.4); Mean Corpuscular Hemoglobin 30.6 pg (27.0-31.2); Mean Platelet Volume 8.8 fl (7.4-10.4); Monocytes # 0.3 K/mm3 (0.1-1.0); Monocytes % 6.6 % (1.7-9.3); Neutrophils # 3.1 K/mm3 (1.8-7.8); Neutrophils % 64.7 % (37.0-80.0); Platelet Count 178 K/mm3 (142-424); Red Blood Count 4.67 M/mm3 (4.60-6.20); Red Cell Distribution Width 13.9 % (11.5-17.5); White Blood Count 4.8 K/mm3 (4.8-10.8)
[2021-03-08 08:03] LABS: Hemoglobin A1C 6.4 % (4.0-6.0)
[2021-03-08 09:03] LABS: Alanine Aminotransferase 20 U/L (12-78); Albumin Level 4.2 g/dl (3.5-5.0); Albumin/Globulin Ratio 1.8 (1.1-1.8); Alkaline Phosphatase 75 U/L (38-126); Anion Gap 11.3 mEq/L (5-15); Aspartate Amino Transferase 22 U/L (17-59); Bilirubin,Total 0.9 mg/dl (0.2-1.3); Blood Urea Nitrogen 18 mg/dl (9-20); Calcium 9.1 mg/dl (8.4-10.2); Carbon Dioxide 30 mmol/L (22.0-30.0); Chloride 100 mmol/L (98-107); Chol/HDL Ratio 3.5 (1-3.5); Cholesterol 102 mg/dl (140-200); Estimated Glomerular Filt Rate 72 ml/min (>60); GFR (African American) 87 ML/MIN (>60); Globulin 2.4 g/dL (1.3-3.2); Glucose 129 mg/dl (74-100); HDL Cholesterol 29 mg/dl (40-60); Potassium 4.3 mmoL/L (3.5-5.1); Sodium 137 mmol/L (136-145); Total Protein,Serum 6.6 g/dl (6.3-8.2); Triglycerides 128 mg/dl (30-150); VLDL Cholesterol 26 mg/dL (0-40)
[2021-03-08 09:14] LABS: Direct LDL Cholesterol 47.97 mg/dL (100-129)
== END ==
PROVIDERS: Visit Provider Internal Medicine Adolescent Medicine
DX: E11.9 Type 2 diabetes mellitus without complications (principal); E78.5 Hyperlipidemia, unspecified; Z79.84 Long term (current) use of oral hypoglycemic drugs
CPT/HCPCS: 36415; 80053; 80061; 83036; 85025

== ENCOUNTER 2024-06-10 14:07 | Outpatient (CLI) | payer MEDICARE, BC, SELFPAY ==
--- NOTE | 2024-06-10 | CA_ITS ---
FINAL REPORT CLINICAL HISTORY: Left bruit, Ex smoker, HTN COMPARISON: None FINDINGS: RIGHT CAROTID: CCA PSV -82 cm/sec ICA PSV -83 cm/sec ICA/CCA PSV ratio -1.0. Comments: Mild plaque disease is noted. LEFTCAROTID: CCA PSV -92. cm/sec ICA PSV -66. cm/sec ICA/CCA PSV ratio -0.9. Comments: Moderate plaque disease is noted. Antegrade flow is seen within the vertebral arteries. IMPRESSION: Carotid stenosis classified less than 50% Reviewed, Interpreted and Dictated by Freeman Arboleda MD Transcribed by Rosa Covarrubias Authenticated and [facility]
--- NOTE | 2024-06-10 14:44 | ECG_ITS ---
APPROVED REPORT Exam: Resting ECG HR:48 bpm ECG Measurements Heart Rate 48 AXES CO 155 P 47 QRSd 148 QRS 81 QT 450 T -73 QTc 415 Conclusion SINUS BRADYCARDIA WITH MARKED SINUS ARRHYTHMIA LEFT BUNDLE BRANCH BLOCK [120+ ms QRS DURATION, 80+ ms Q/S IN V1/V2, 85+ ms R IN I/aVL/V5/V6] ABNORMAL ECG UNCONFIRMED REPORT Electronically signed by : Elie Jackson MD 06/10/2024 15:48:18
== END 2024-06-10 23:59 | disposition home or self-care (01) ==
LOC: RT 14:08
PROVIDERS: PCP Internal Medicine Adolescent Medicine; Visit Provider Nurse Practitioner Family
DX: R09.89 Other specified symptoms and signs involving the circulatory and respiratory systems (principal); R00.1 Bradycardia, unspecified
CPT/HCPCS: 93005; 93880

== ENCOUNTER 2024-06-20 13:34 | Outpatient (CLI) | payer MEDICARE, BC, SELFPAY ==
--- NOTE | 2024-06-20 13:43 | CA_ITS ---
APPROVED REPORT EXAM: Comprehensive 2D, Doppler, and color-flow Echocardiogram Professor Of Graphic Design: Carine Souza RDCS Ht: 5 ft 10 in Wt: 187lbs BSA: 2.03 BP: 133/78 mmHg Indications: BRADYCARDIA,HTN,HLP M-Mode Dimensions RVDd 1.97 cm (0.9-2.6) LA Diam 3.63 cm (1.9-4.0) LVDd 5.80 cm (3.5-5.7) LVDs 4.35 cm (3.5-5.7) IVSd 1.35 cm (0.6-1.1) PWd 0.89 cm (0.6-1.1) EF (Teich) 48.70% FS 25.00% EDV (Teich) 166.60 mL TAPSE 4.86 (<1.7) ESV (Teich) 85.40 mL LV Diastology E Decel Time 267 (160-240 msec) E/A Ratio 0.8 Mitral Valve MV E Max Sandro. 55.0 (40-130 cm/s) MV A Velocity 70.0 (40-130 cm/s) E/A Ratio 0.78 MV PHT 78.0 ms Tricuspid Valve TR P. Velocity 302.00 cm/s RAP Estimate 10.00 mmHg RVSP 46.50 mmHg Left Ventricle The left ventricle is normal size. Left ventricular systolic function is mildly decreased. There is increased LV wall thickness. Grade 1 diastolic dysfunction. There is mild global hypokinesis present. LVEF is 40-45%. Right Ventricle Right ventricle is moderate to severely dilated. Right ventricle is mildly hypokinetic. Atria Left atrium is mildly dilated. Right atrium is mildly dilated. There is no Doppler evidence of interatrial shunt. Aortic Valve Aortic valve is mildly thickened. There is no aortic valvular stenosis. Mild aortic regurgitation. Mitral Valve The mitral valve leaflets are mildly thickened. Mild mitral regurgitation. No evidence of mitral valve stenosis. Tricuspid Valve Tricuspid valve is grossly normal in structure and function. Mild tricuspid regurgitation. RVSP is 20-25 mmHg. Pulmonic Valve The pulmonary valve is normal in structure. Trace pulmonic regurgitation. Great Vessels The aortic root is normal in size. IVC is normal in size and collapses >50% with inspiration. Pericardium There is no pericardial effusion. Other Information Study Quality: Fair Conclusion Mildly reduced LV systolic function (LVEF 40-45%). Moderate to severe RV dilation with mild reduction in RV function. Mild biatrial dilation. Mild AI, mild MR, mild TR. Electronically signed by : Minna Arrieta MD 06/26/2024 21:31:29
== END 2024-06-20 23:59 | disposition home or self-care (01) ==
LOC: RT 13:38
PROVIDERS: PCP Internal Medicine Adolescent Medicine; Visit Provider Nurse Practitioner Family
DX: I51.7 Cardiomegaly (principal); R00.1 Bradycardia, unspecified
CPT/HCPCS: 93306

== ENCOUNTER 2024-07-05 14:29 | Outpatient (CLI) | payer MEDICARE, BC, SELFPAY | END 2024-07-05 23:59 | disposition home or self-care (01) | LOC: RT 14:31 | PROVIDERS: PCP Nurse Practitioner Family; Visit Provider Nurse Practitioner Family | DX: G47.33 Obstructive sleep apnea (adult) (pediatric) (principal); I10 Essential (primary) hypertension; R00.1 Bradycardia, unspecified | CPT/HCPCS: 93225; 93226 ==

== ENCOUNTER 2024-07-26 09:02 | Outpatient (CLI) | payer MEDICARE, BC, SELFPAY ==
[2024-07-26 09:56] VITALS: BP 178/79; PULSE 45; RESP 16; TEMP 36.1; O2SAT 98; BMI 26.5
--- NOTE | 2024-07-26 10:00 | CT_ITS ---
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 A noncontrast coronary calcium scan was performed. A CT attenuation threshold of 130 Hounsfield units (HU) was used for the detection of calcium in contiguous voxels of 1 sq mm in area to be counted as individual lesions. Bolus tracking in the ascending aorta with a threshold of 180 HU was performed. Immediately afterwards, ECG synchronized cardiac CT was then performed from the cardiac base to apex using retrospective gating with ECG tube current modulation. A total of 85 mL of Isovue 370 mg/mL contrast medium was administered at 5 mL/sec followed by a saline flush using a biphasic injection protocol. A tube voltage of 120 KVp was used. The average heart rate at the time of acquisition was 42 bpm and regular. Image Reconstruction Transaxial images were reconstructed at 0.67 mm slide thickness. Data was reviewed interactively on an advanced workstation capable of 2 and 3-dimensional displays in all conventional reconstruction formats, including multiplanar reformations, maximum intensity projections, curved multiplanar reformations, and volume rendered reconstructions. When applicable, selected routine images describing the relevant coronary anatomy and pathology were saved and sent to PACS. Complications None Technical Quality Overall image quality was fair due to significant calcification and blooming artifact. Coronary artery opacification was adequate. Total DLP (Dose-Length Product) is 2204.4 mGy-cm. The reported value represents the total of one or more individual components during the CT acquisition of this date and at this time, and as such, the same value may appear in more than one CT report depending on the interpreting/reporting physicians. COMPARISON None FINDINGS CT Coronary Calcium Scoring LMA (Left Main Artery) = 0 LAD (Left Anterior Descending) = 790 LCX (Left Coronary Circumflex) = 235 RCA (Right Coronary Artery) = 1104 Total Calcium Score = 2129 using the AJ-130 method. The observed calcium score of 2129 is at 82nd percentile for subjects of the same age, sex, and race/ethnicity. The interpretation of the calcium heart score is based on the following continuum*: 0 = no calcified plaque detected (risk of coronary artery disease is very low ??? less than 5%) 1-10 = calcium detected in extremely minimal levels (risk of coronary diseases is still low ??? less than 10%) 11-100 = mild levels of plaque detected with certainty (mild or minimal narrowing of heart arteries is likely) 101-400 = definite,at least moderate levels of plaque detected (relatively high risk of a heart attack within 3-5 years) >401-999 = extensive levels of plaque detected (high risk of heart attack, high levels of vascular disease are present, high likelihood of at least one significant coronary narrowing) *The calcium heart score quantifies the burden of coronary calcification/plaque in the coronary arteries. The calcium heart score is not able to evaluate the presence or burden of non-calcified (i.e. soft) plaque. There is also identifiable calcification in the ascending thoracic aorta. Coronary CT Angiography The coronary arterial system is right dominant. Quantitative Stenosis Grading: Left Main (LM): The left main originates normally from the left sinus of Valsalva. The LM bifurcates into the left anterior descending artery and left circumflex artery. The LM is patent with no evidence of atherosclerosis. Left Anterior Descending (LAD) and Diagonal Branches: The LAD gives off 2 diagonal branch(es). There is mixed calcified/noncalcified plaque in the proximal LAD, with up to 70-90% luminal stenosis. There is no evidence of LAD-myocardial bridge. Left Circumflex (LCX) and Obtuse Marginals (OM): The LCX gives off 1 Obtuse Marginal (OM) branch(es). There is mixed calcified/noncalcified plaque in the proximal LCx with up to 25-49% luminal stenosis. Right Coronary Artery (RCA): The RCA originates normally from the right sinus of Valsalva. The RCA gives off a posterior descending artery (PDA) and posterolateral (PL) branches. There is mixed calcified/noncalcified plaque in the proximal RCA, with up to 50 to 70% luminal stenosis. Non-Coronary Cardiac Findings: Analysis of the left ventricular (LV) structure and function was performed after 3-D reconstruction of the LV from axial images, with user-corrected automatic contouring for assessment of LV volumes and user-defined reconstruction from oblique planes for measurement of 3-D cardiac structure and function. -The left ventricle systolic function is mildly reduced. -There is no left atrial appendage filling defect. Two right pulmonary veins and two left pulmonary veins drain normally into the left atrium. -No pericardial thickening or calcification. -Central and branch pulmonary arteries in the [id number] are unremarkable. -Thoracic aorta within the visualized thoracic aortic-branches in the [id number] is unremarkable. Extracardiac Structures No significant extra-cardiac findings. Note, however, that this study is focused on the cardiac findings. IMPRESSION -Overall image quality was fair due to significant calcification and blooming artifact. -Presence of coronary calcification with an Agatston score = 2129 using the AJ-130 method. -The observed calcium score of 2129 is at 82nd percentile for subjects of the same age, sex, and race/ethnicity. -Multivessel coronary disease with possible evidence of significant flow-limiting atherosclerosis of the proximal LAD and proximal RCA segments. -CAD-RADS 4A. Management recommendations per ACC/AHA guidelines*, as clinically appropriate. -There is mild reduction in LV systolic function noted on CCTA. Correlation with recent or new TTE is suggested. *Recommendations: CAD RADS 0: Reassurance. Consider non-atherosclerotic causes of chest pain. CAD RADS 1: Consider non-atherosclerotic causes of chest pain. Consider preventive therapy and risk factor modification. CAD RADS 2: Consider non-atherosclerotic causes of chest pain. Consider preventive therapy and risk factor modification, particularly for patients with nonobstructive plaque in multiple segments. CAD RADS 3: Consider further functional testing. Consider symptom-guided anti-ischemic and preventive pharmacotherapy as well as risk factor modification per published guideline statements. CAD RADS 4A: Consider further functional testing or invasive coronary angiography with revascularization per published guideline statements. Consider symptom-guided anti-ischemic and preventive pharmacotherapy as well as risk factor modification per published guideline statements. CAD RADS 4B: Invasive coronary angiography recommended with revascularization per published guideline statements. Consider symptom-guided anti-ischemic and preventive pharmacotherapy as well as risk factor modification per published guideline statements. CAD RADS 5: Consider invasive angiography and/or viability assessment with revascularization per published guideline statements. Consider symptom-guided anti-ischemic and preventive pharmacotherapy as well as risk factor modification per published guideline statements. CRITICAL RESULT None COMMUNICATION Per this written report The coronary and cardiac findings of this CCTA were reviewed, reported, and signed by Sanjay Arrieta MD (Sole Assessor) Conclusion Electronically signed by : Minna Arrieta MD 07/27/2024 13:10:47
[2024-07-26 10:22] LABS: Chloride 103 mmol/L (98-107); Potassium 4.4 mmoL/L (3.5-5.1); Sodium 140 mmol/L (136-145)
[2024-07-26 10:25] LABS: Anion Gap 9.4 mEq/L (5-15); Blood Urea Nitrogen 23 mg/dl (9-20); Calcium 9.1 mg/dl (8.4-10.2); Carbon Dioxide 32 mmol/L (22.0-30.0); Creatinine Clearance Estimated 68 mL/min (50-200); Estimated Glomerular Filt Rate 72 ml/min (>60); GFR (African American) 87 ML/MIN (>60); Glucose 106 mg/dl (74-100)
[2024-07-26 11:00] VITALS: BP 177/82; PULSE 52; RESP 17; O2SAT 100
[2024-07-26 11:05] VITALS: BP 181/87; PULSE 45; O2SAT 97
[2024-07-26 11:10] VITALS: BP 162/84; PULSE 44; O2SAT 98
[2024-07-26] MEDS: IOPAMIDOL-370 (76%);100ML BOTTLE 85 ML IV (11:21)
[2024-07-26] MEDS: 0.9 % SODIUM CHLORIDE 50 ML VIAL IV (11:21)
[2024-07-26] MEDS: SODIUM CHLORIDE 0.9% 10ML SYR (RAD ONLY) 10 ML IV (11:22)
== END 2024-07-26 11:31 | disposition home or self-care (01) ==
PROVIDERS: PCP Nurse Practitioner Family; Visit Provider Nurse Practitioner Family
DX: I50.20 Unspecified systolic (congestive) heart failure (principal); R06.02 Shortness of breath; R94.31 Abnormal electrocardiogram [ECG] [EKG]; R53.83 Other fatigue; I25.10 Atherosclerotic heart disease of native coronary artery without angina pectoris
CPT/HCPCS: 75574; 80048; Q9967

== ENCOUNTER 2024-08-08 08:26 | Day surgery (SDC) | payer MEDICARE, BC, SELFPAY ==
[2024-08-08] VITALS (11 sets, daily range): BP systolic 113–183; BP diastolic 61–100; PULSE 39–63; RESP 16–20; O2SAT 94–99; BMI 28.5
--- NOTE | 2024-08-08 07:07 | IR_ITS ---
APPROVED REPORT Patient Location: Outpatient PROCEDURES Left heart catheterization Left ventriculogram Selective coronary angiogram INDICATION Coronary artery disease, Abnormal CCTA, Informed consent was obtained prior to the procedure. COMPLICATIONS NONE Estimated Blood Loss: LESS THAN 10 ML TECHNIQUE One percent lidocaine used to anesthetize the right anterior aspect of the wrist. The right radial artery was accessed via the Seldinger technique. A 6 [place] sheath was placed in the right radial artery. 2.5 mg of Verapamil, 800 mcg of nitroglycerin, 1mg Lidocaine and 5000 U Heparin were given through the arterial sheath. The 6 [place] JL 3 guide catheter was also used to perform left heart catheterization, left ventriculogram and selective coronary angiogram. At the end of the procedure the sheath was removed good hemostasis was achieved using Traclet band, patient was transferred to the postop holding area in stable condition. ANGIOGRAPHIC RESULTS The left main artery Has a smooth ostial 10% stenosis The left anterior descending artery Has proximal 30% concentric stenoses within the mid vessel 40% and then eccentric 40 to 50% stenosis. The LAD is large and wraps the apex The circumflex artery Nondominant yet still large and has a proximal concentric 40% stenosis with additional 30% stenoses in the large proximal first obtuse marginal artery The right coronary artery There is a dominant vessel and has proximal 30% stenosis with a mid vessel 40 to 50% concentric stenosis immediately proximal to a high bifurcating posterior descending artery and large posterior lateral branch. 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 Medical management for coronary disease 2. Patient was experiencing 2-1 AV block with bradycardia. Either empiric pacemaker placement or placement of 48-hour Holter monitor and/or cardiac event monitor 3. LDL less than 55 achieved high intensity statin 4. Treatment of elevated LVEDP Electronically signed by : John Alonzo MD 08/08/2024 10:35:24
[2024-08-08 08:52] LABS: Basophils % 0.7 % (0.1-2.0); Eosinophils # 0.2 K/mm3 (0.0-0.4); Eosinophils % 3.4 % (0.1-12.0); Hematocrit 44.6 % (42.0-52.0); Hemoglobin 15.3 g/dL (14.1-18.0); Lymphocytes # 1.3 K/mm3 (0.7-4.5); Lymphocytes % 24.1 % (10-50); Mean Corpuscular HGB Conc 34.3 g/dL (31.8-35.4); Mean Corpuscular Hemoglobin 30.6 pg (27.0-31.2); Mean Corpuscular Volume 89.2 fl (80-94); Monocytes # 0.4 K/mm3 (0.1-1.0); Neutrophils # 3.6 K/mm3 (1.8-7.8); Neutrophils % 64.4 % (37.0-80.0); Nucleated Red Blood Cells # 0 10^3/uL; Nucleated Red Blood Cells % 0 %; Platelet Count 175 K/mm3 (142-424); Red Cell Distribution Width-SD 45.1 fL; White Blood Count 5.6 K/mm3 (4.8-10.8)
[2024-08-08 08:57] LABS: Chloride 103 mmol/L (98-107); Potassium 4.2 mmoL/L (3.5-5.1); Sodium 141 mmol/L (136-145)
[2024-08-08 09:00] LABS: Anion Gap 13.2 mEq/L (5-15); Blood Urea Nitrogen 17 mg/dl (9-20); Carbon Dioxide 29 mmol/L (22.0-30.0); Creatinine Clearance Estimated 62 mL/min (50-200); Estimated Glomerular Filt Rate 64 ml/min (>60); GFR (African American) 78 ML/MIN (>60)
[2024-08-08 09:01] LABS: Calcium 9.4 mg/dl (8.4-10.2); Glucose 112 mg/dl (74-100)
[2024-08-08] MEDS: HEPARIN 1,000 UNITS/ML 10ML VIAL (CATH LAB) 5000 UNIT IV (10:03)
[2024-08-08] MEDS: NITROGLYCERIN 800MCG/8ML SYR (CATH LAB) 800 MCG IA (10:03)
[2024-08-08] MEDS: HEPARIN 1,000 UNITS/500ML NS (CATH LAB) 3000 UNIT IV (10:03)
[2024-08-08] MEDS: LIDOCAINE 1% 10ML MDV 10 ML IJ (10:03)
[2024-08-08] MEDS: 0.9 % SODIUM CHLORIDE 500 ML 25 ML IV (10:04)
[2024-08-08] MEDS: diphenhydrAMINE 50MG/ML VIAL 50 MG IV (10:04)
[2024-08-08] MEDS: VERAPAMIL 2.5MG/ML 2ML VIAL 2.5 MG IV (10:04)
[2024-08-08] MEDS: MIDAZOLAM HCL 1MG/ML 5ML VIAL 1 MG IV (10:06)
[2024-08-08] MEDS: FENTANYL 100MCG/2ML VIAL 50 MCG IV (10:06)
[2024-08-08] MEDS: IOPAMIDOL-370 (76%);100ML BOTTLE 85 ML IV (15:56)
== END 2024-08-08 14:00 | disposition home or self-care (01) ==
LOC: CATHLAB 08:26
PROVIDERS: PCP Nurse Practitioner Family; Visit Provider Internal Medicine
DX: I25.118 Atherosclerotic heart disease of native coronary artery with other forms of angina pectoris (principal); R93.1 Abnormal findings on diagnostic imaging of heart and coronary circulation; I11.0 Hypertensive heart disease with heart failure; I50.20 Unspecified systolic (congestive) heart failure; Z88.1 Allergy status to other antibiotic agents; Z79.899 Other long term (current) drug therapy; I65.23 Occlusion and stenosis of bilateral carotid arteries; I34.0 Nonrheumatic mitral (valve) insufficiency; I35.1 Nonrheumatic aortic (valve) insufficiency; Z87.891 Personal history of nicotine dependence
CPT/HCPCS: 80048; 85025; 93458; 99152; C1725; C1769; J1200; J1644; J3010; Q9967

== ENCOUNTER 2024-11-10 15:50 | Outpatient (CLI) | payer MEDICARE, BC, SELFPAY ==
[2024-11-10 16:55] LABS: Albumin Level 4.6 g/dl (3.5-5.0)
[2024-11-10 16:57] LABS: Bilirubin,Unconjugated 0.9 mg/dL (0.0-1.1)
[2024-11-10 16:58] LABS: Alanine Aminotransferase 29 U/L (12-78); Alkaline Phosphatase 81 U/L (38-126); Aspartate Amino Transferase 34 U/L (17-59); Bilirubin,Direct 0.2 mg/dl (0.0-0.4); Bilirubin,Indirect 1.0 mg/dL (0.0-0.9); Bilirubin,Total 1.2 mg/dl (0.2-1.3); Cholesterol 99 mg/dl (140-200); HDL Cholesterol 41 mg/dl (40-60); Total Protein,Serum 6.9 g/dl (6.3-8.2); Triglycerides 71 mg/dl (30-150)
== END 2024-11-10 23:59 | disposition home or self-care (01) ==
LOC: LAB 15:51
PROVIDERS: PCP Internal Medicine Adolescent Medicine; Visit Provider Nurse Practitioner Family
DX: I65.23 Occlusion and stenosis of bilateral carotid arteries (principal); R53.83 Other fatigue; I25.118 Atherosclerotic heart disease of native coronary artery with other forms of angina pectoris; E78.2 Mixed hyperlipidemia; I25.10 Atherosclerotic heart disease of native coronary artery without angina pectoris; I11.9 Hypertensive heart disease without heart failure
CPT/HCPCS: 36415; 80061; 80076